=== PATIENT | male | born 1985 | race Hispanic/Latino ===

== ENCOUNTER 2018-12-03 08:38 | Emergency (ER) | payer OTHER ==
[2018-12-03 08:46] VITALS: BP 133/77
[2018-12-03 09:00] LABS: Basophils % (Auto) 0.4 % (0.0-1.8); Eosinophils # (Auto) 0.3 K/mm3 (0.0-0.4); Eosinophils % (Auto) 3.1 % (0.0-4.3); Hematocrit 46.5 % (35.5-45.6); Hemoglobin 16.1 gm/dl (11.8-15.2); Lymphocytes # (Auto) 2.2 K/mm3 (1.2-5.4); Lymphocytes % (Auto) 24.8 % (13.4-35.0); Mean Corpuscular HGB Conc 35 % (32-34); Mean Corpuscular Volume 92 fl (84-94); Monocytes # (Auto) 0.7 K/mm3 (0.0-0.8); Monocytes % (Auto) 7.8 % (0.0-7.3); Platelet Count 232 K/mm3 (140-440); Red Blood Count 5.04 M/mm3 (3.65-5.03); Red Cell Distribution Width 13.1 % (13.2-15.2)
[2018-12-03 09:18] LABS: Alanine Aminotransferase 35 units/L (7-56); Albumin 4.1 g/dL (3.9-5); BUN/Creatinine Ratio 16; Blood Urea Nitrogen 11 mg/dL (9-20); Calcium 8.8 mg/dL (8.4-10.2); Hemolysis Index 34
[2018-12-03 09:24] LABS: Bilirubin,Urine NEG (Negative); Blood,Urine LG (Negative); Color,Urine Red (Yellow); Mucus,Urine 2+ /HPF; RBC,Urine > 182.0 /HPF (0.0-6.0); Urobilinogen,Urine < 2.0 mg/dL (<2.0)
[2018-12-03] MEDS ORDERED: ZOFRAN IV ONE (09:31)
[2018-12-03] MEDS ORDERED: TORADOL IV ONE (09:31)
[2018-12-03] MEDS ORDERED: NACL 0.9% 1000 ML 1,000 ML IV ONE (09:31)
--- NOTE | 2018-12-03 09:37 | Emergency Department Report ---
ED Abdominal Pain HPI - General Chief Complaint: Abdominal Pain Stated Complaint: ABD PAIN Time Seen by Provider: 12/03/18 09:18 Source: patient Mode of arrival: Ambulatory Limitations: No Limitations - History of Present Illness Initial Comments: 33-year-old male presents to ED with left flank pain, onset early this morning. Patient reported associated hematuria. Patient reports history of kidney stones in the past, states this feels similar to previous episode but the pain is worse. Also reports history of polycystic kidney disease. Patient denies nausea or vomiting. MD Complaint: flank pain -: This morning Location: L flank Radiation: LLQ Migration to: no migration Severity: severe Quality: sharp Consistency: constant Improves With: nothing Worsens With: nothing Associated Symptoms: hematuria. denies: nausea, vomiting, fever, chills, dysuria - Related Data Previous Rx's Medication Instructions Recorded Last Taken Type Ciprofloxacin HCl [Ciprofloxacin 500 mg PO Q12HR #20 tab 12/03/18 Unknown Rx TAB] HYDROcodone/APAP 5-325 [[place] 1 each PO Q6HR PRN #7 tablet 12/03/18 Unknown Rx 5/325] Naproxen [Naprosyn] 500 mg PO BID #20 tablet 12/03/18 Unknown Rx Tamsulosin [Flomax] 0.4 mg PO QDAY 5 Days #5 cap 12/03/18 Unknown Rx Allergies Allergy/AdvReac Type Severity Reaction Status Date / Time No Known Allergies Allergy Unverified 12/03/18 08:46 ED Review of Systems ROS: Stated complaint: ABD PAIN Other details as noted in HPI Comment: All other systems reviewed and negative Constitutional: denies: chills, fever Gastrointestinal: abdominal pain. denies: nausea, vomiting Genitourinary: hematuria ED Past Medical Hx - Past Medical History Previous Medical History?: Yes Additional medical history: Polycystic kidney disease. - Surgical History Past Surgical History?: No - Social History Smoking Status: Current Every Day Smoker Substance Use Type: Marijuana - Medications Home Medications: Home Medications Medication Instructions Recorded Confirmed Last Taken Type Ciprofloxacin HCl [Ciprofloxacin 500 mg PO Q12HR #20 tab 12/03/18 Unknown Rx TAB] HYDROcodone/APAP 5-325 [[place] 1 each PO Q6HR PRN #7 tablet 12/03/18 Unknown Rx 5/325] Naproxen [Naprosyn] 500 mg PO BID #20 tablet 12/03/18 Unknown Rx Tamsulosin [Flomax] 0.4 mg PO QDAY 5 Days #5 cap 12/03/18 Unknown Rx ED Physical Exam - General Limitations: No Limitations General appearance: alert, in no apparent distress - Head Head exam: Present: atraumatic, normocephalic - Eye Eye exam: Present: normal appearance, PERRL, EOMI - ENT ENT exam: Present: mucous membranes moist - Neck Neck exam: Present: normal inspection - Respiratory Respiratory exam: Present: normal lung sounds bilaterally. Absent: respiratory distress - Cardiovascular Cardiovascular Exam: Present: regular rate, normal rhythm - GI/Abdominal GI/Abdominal exam: Present: soft, tenderness (mild LLQ tenderness). Absent: distended - Extremities Exam Extremities exam: Present: normal inspection - Back Exam Back exam: Absent: CVA tenderness (R), CVA tenderness (L) - Neurological Exam Neurological exam: Present: alert, oriented X3 - Psychiatric Psychiatric exam: Present: normal affect, normal mood - Skin Skin exam: Present: warm, dry, intact, normal color ED Course Vital Signs 12/03/18 12/03/18 08:45 09:06 Temperature 97.9 F Pulse Rate 85 Respiratory 98 H 17 Rate Blood Pressure 133/77 [Right] ED Medical Decision Making - Lab Data Result diagrams: 12/03/18 08:47 12/03/18 08:47 - Radiology Data Radiology results: report reviewed, image reviewed - Medical Decision Making - 7 mm stone present on CT scan - WBCs normal, pt is afebrile - pain controlled with toradol, pt asleep on stretcher - WBCs in urine but urine negative for nitrites or leuk esterase, no urine bacteria present - Differential Diagnosis kidney stone, ruptured renal cyst, pyelonephritis Critical care attestation.: If time is entered above; I have spent that time in minutes in the direct care of this critically ill patient, excluding procedure time. ED Disposition Clinical Impression: Kidney stone on left side Disposition: DC-01 TO HOME OR SELFCARE Is pt being admited?: No Condition: Stable Instructions: Kidney Stones (ED) Prescriptions: Ciprofloxacin HCl [Ciprofloxacin TAB] 500 mg PO Q12HR #20 tab Tamsulosin [Flomax] 0.4 mg PO QDAY 5 Days #5 cap HYDROcodone/APAP 5-325 [[place] 5/325] 1 each PO Q6HR PRN #7 tablet PRN Reason: Pain Referrals: NORA COHN MD [Primary Care Provider] - 3-5 Days CHARISSE ONEILL MD [Staff Physician] - 3-5 Days Time of Disposition: 11:14
--- NOTE | 2018-12-03 11:04 | Cat Scan Report ---
CT abdomen pelvis wo con INDICATION / CLINICAL INFORMATION: Left flank pain. Hematuria. TECHNIQUE: All CT scans at this location are performed using CT dose reduction for ALARA by means of automated e xposure control. COMPARISON: 04/17/2011. FINDINGS: ABDOMEN: There are multiple nonobstructive renal calculi bilaterally, the largest of which measures a pproximately 1 cm. There is mild left pelvocaliectasis, ureterectasis and perinephric/periureteral so ft tissue stranding. The liver, spleen, gallbladder, bile ducts, pancreas, adrenal glands and bowel are normal. No adenopa thy is seen. There is an incidental 4 mm noncalcified solid nodule in the right lower lobe. No additi onal follow-up is recommended based on the patient's age. PELVIS: The left ureter is mildly dilated to distal above the ureterovesical junction. There is a 7 m m ovoid calculus at that site on axial image #75. The ureter returns to a normal level below that sit e. The distal right ureter, urinary bladder and prostate gland are normal. There is a small fat-containing right inguinal hernia without complication. A normal appendix is pres ent and there is no evidence of diverticulitis. No abnormal mass or fluid collection is seen. There i s mild spondylosis. IMPRESSION: 1. 7 mm calculus in the distal left ureter, a couple of centimeters above the ureterovesical junction , is causing mild hydronephrosis. 2. Bilateral nonobstructive nephrolithiasis. 3. Small fat-containing right inguinal hernia without complication. Signer Name: Erik Webster MD Signed: 12/03/2018 10:59 AM Workstation Name: [id number]
== END 2018-12-03 11:22 | disposition home or self-care (01) ==
LOC: ED 08:38
DX: N20.0 Calculus of kidney (principal); F17.200 Nicotine dependence, unspecified, uncomplicated; F12.90 Cannabis use, unspecified, uncomplicated; Z79.899 Other long term (current) drug therapy
CPT/HCPCS: 36415; 74176; 80053; 81001; 85025; 96374; 96375; 99284; J1885; J2405; J7030

== ENCOUNTER 2019-11-27 19:55 | Emergency (ER) | payer SELFPAY ==
[2019-11-27 20:30] VITALS: BP 132/70
[2019-11-27] MEDS ORDERED: SODIUM CHLORIDE 0.9% 1000 ML 1,000 ML IV ONE (22:14)
--- NOTE | 2019-11-27 22:50 | Cat Scan Report ---
CT abdomen pelvis wo con INDICATION / CLINICAL INFORMATION: Suprapubic pain. TECHNIQUE: All CT scans at this location are performed using CT dose reduction for ALARA by means of automated e xposure control. COMPARISON: 12/03/2018 FINDINGS: No free fluid is seen in the abdomen. There are bilateral renal stones without evidence of obstructio n. The liver, spleen, pancreas, adrenal glands and great vessels are normal. No enlarged mesenteric o r retroperitoneal lymph nodes are seen. In the pelvis, no free fluid is seen. There is a 1.3 cm stone present in the bladder. The right ingui nal hernia now contains bowel but without obstruction. No enlarged lymph nodes are seen. The appendix is normal. No significant skeletal abnormality is identified. IMPRESSION: 1. 1.3 cm stone in the bladder. The bladder wall is mildly thickened. 2. Right inguinal hernia now containing bowel but without obstruction 3. Bilateral renal stones without obstruction Signer Name: Yobani Gardner MD FACR Signed: 11/27/2019 10:45 PM Workstation Name: [id number]
[2019-11-27 22:51] LABS: Basophils # (Auto) 0.1 K/mm3 (0.0-0.1); Basophils % (Auto) 0.7 % (0.0-1.8); Eosinophils # (Auto) 0.4 K/mm3 (0.0-0.4); Eosinophils % (Auto) 3.6 % (0.0-4.3); Lymphocytes # (Auto) 3.1 K/mm3 (1.2-5.4); Lymphocytes % (Auto) 28.3 % (13.4-35.0); Mean Corpuscular HGB Conc 37 % (32-34); Mean Corpuscular Volume 89 fl (84-94); Monocytes % (Auto) 8.8 % (0.0-7.3); Platelet Count 242 K/mm3 (140-440); Red Blood Count 4.84 M/mm3 (3.65-5.03)
[2019-11-27 22:53] LABS: Hematocrit 43.1 % (35.5-45.6); Hemoglobin 16.1 gm/dl (11.8-15.2)
[2019-11-27 23:13] LABS: Alanine Aminotransferase 55 units/L (7-56); Albumin 4.4 g/dL (3.9-5); BUN/Creatinine Ratio 19; Blood Urea Nitrogen 13 mg/dL (9-20); Calcium 9.6 mg/dL (8.4-10.2); Hemolysis Index 225
[2019-11-27 23:18] LABS: Bilirubin,Urine NEG (Negative); Blood,Urine NEG (Negative); Color,Urine Yellow (Yellow); Mucus,Urine FEW /HPF; Protein,Urine <15 mg/dL mg/dL (Negative); Urobilinogen,Urine < 2.0 mg/dL (<2.0)
[2019-11-27] MEDS ORDERED: KETOROLAC 30 MG/1 ML INJ IV ONE (23:25)
--- NOTE | 2019-11-27 23:47 | Emergency Department Report ---
ED Male HPI - General Chief complaint: Urogenital-Male Stated complaint: INSECT BITE HAVING TROUBLE BREATHING Source: patient Mode of arrival: Ambulatory Limitations: No Limitations - History of Present Illness Initial comments: Patient is a 34-year-old white male with a history of polycystic kidney disease and chronic recurrent kidney stones who presents to the ED with acute onset persistent decreased urination despite drinking water, suprapubic pressure and dysuria, urinary frequency and urgency for the last 2 days worse in the last 12 hours. Patient states that whenever he voids urine he literally dribbles drops of urine and feels more pressure in the suprapubic area. Patient denies testicular pain, traumatic injury, hematuria, penile discharge, abdominal pain, nausea, vomiting, bilateral flank pain, dizziness, syncope, fever, chills, cough, chest pain or shortness of breath, or diarrhea. MD Complaint: dysuria, other (decreased urination; suprapubic pressure) -: Sudden, days(s) (2) Location: penis Radiation: none Severity: mild Severity scale (0 -10): 2 Quality: dull, other (pressure) Improves with: none Worsens with: urination denies other symptoms, urinary retention, dysuria. denies: discharge, swelling, mass, rash, blood in urine, fever, nausea/vomiting, incontinence, other - Related Data Sexually active: Yes Previous Rx's Medication Instructions Recorded Last Taken Type HYDROcodone/APAP 5-325 [[place] 1 each PO Q6HR PRN #7 tablet 12/03/18 Unknown Rx 5/325] Naproxen [Naprosyn] 500 mg PO BID #20 tablet 12/03/18 Unknown Rx Tamsulosin [Flomax] 0.4 mg PO QDAY 5 Days #5 cap 12/03/18 Unknown Rx Ciprofloxacin HCl [Ciprofloxacin 500 mg PO Q12HR #20 tab 11/28/19 Unknown Rx TAB] Ketorolac [Toradol] 10 mg PO Q8H PRN #20 tablet 11/28/19 Unknown Rx Tamsulosin [Flomax] 0.4 mg PO QDAY #12 cap 11/28/19 Unknown Rx Allergies Allergy/AdvReac Type Severity Reaction Status Date / Time No Known Allergies Allergy Unverified 12/03/18 08:46 ED Review of Systems ROS: Stated complaint: INSECT BITE HAVING TROUBLE BREATHING Other details as noted in HPI Constitutional: denies: chills, fever Eyes: denies: eye pain, eye discharge, vision change ENT: denies: ear pain, throat pain Respiratory: denies: cough, shortness of breath, wheezing Cardiovascular: denies: chest pain, palpitations Endocrine: no symptoms reported Gastrointestinal: denies: abdominal pain, nausea, diarrhea Genitourinary: urgency, dysuria, frequency, other (decreased urination) Musculoskeletal: denies: back pain, joint swelling, arthralgia Skin: denies: rash, lesions Neurological: denies: headache, weakness, paresthesias Psychiatric: denies: anxiety, depression Hematological/Lymphatic: denies: easy bleeding, easy bruising ED Past Medical Hx - Past Medical History Previous Medical History?: Yes Additional medical history: Polycystic kidney disease; kidney stones - Surgical History Past Surgical History?: Yes - Social History Smoking Status: Current Every Day Smoker Substance Use Type: Marijuana - Medications Home Medications: Home Medications Medication Instructions Recorded Confirmed Last Taken Type HYDROcodone/APAP 5-325 [[place] 1 each PO Q6HR PRN #7 tablet 12/03/18 Unknown Rx 5/325] Naproxen [Naprosyn] 500 mg PO BID #20 tablet 12/03/18 Unknown Rx Tamsulosin [Flomax] 0.4 mg PO QDAY 5 Days #5 cap 12/03/18 Unknown Rx Ciprofloxacin HCl [Ciprofloxacin 500 mg PO Q12HR #20 tab 11/28/19 Unknown Rx TAB] Ketorolac [Toradol] 10 mg PO Q8H PRN #20 tablet 11/28/19 Unknown Rx Tamsulosin [Flomax] 0.4 mg PO QDAY #12 cap 11/28/19 Unknown Rx ED Physical Exam - General Limitations: No Limitations General appearance: alert, in no apparent distress - Head Head exam: Present: atraumatic, normocephalic, normal inspection - Eye Eye exam: Present: normal appearance, PERRL, EOMI Pupils: Present: normal accommodation - ENT ENT exam: Present: normal exam, normal orophraynx, mucous membranes moist, TM's normal bilaterally - Neck Neck exam: Present: normal inspection, full ROM. Absent: tenderness, lymphadenopathy - Respiratory Respiratory exam: Present: normal lung sounds bilaterally. Absent: respiratory distress, wheezes, rales, rhonchi, chest wall tenderness, accessory muscle use, prolonged expiratory - Cardiovascular Cardiovascular Exam: Present: regular rate, normal rhythm, normal heart sounds. Absent: systolic murmur, diastolic murmur, rubs, gallop - GI/Abdominal GI/Abdominal exam: Present: soft, normal bowel sounds. Absent: tenderness, guarding, rebound, hyperactive bowel sounds, hypoactive bowel sounds, organomegaly - Extremities Exam Extremities exam: Present: normal inspection, full ROM, normal capillary refill - Back Exam Back exam: Present: normal inspection, full ROM. Absent: tenderness, CVA tenderness (R), CVA tenderness (L), muscle spasm, paraspinal tenderness, vertebral tenderness - Neurological Exam Neurological exam: Present: alert, oriented X3, CN II-XII intact, normal gait, reflexes normal - Psychiatric Psychiatric exam: Present: normal affect, normal mood - Skin Skin exam: Present: warm, dry, intact, normal color. Absent: rash ED Course Vital Signs 11/27/19 20:26 Temperature 98.4 F Pulse Rate 79 Respiratory 19 Rate Blood Pressure 132/70 O2 Sat by Pulse 97 Oximetry ED Medical Decision Making - Lab Data Result diagrams: 11/27/19 22:21 11/27/19 22:21 - Radiology Data Radiology results: report reviewed, image reviewed Findings [facility] [address] [place] [address] Cat Scan Report Signed Patient: BEBETO MCLEDO MR#: [id number] : 1985 Acct:[id number] Age/Sex: 34 / M ADM Date: 11/27/19 Loc: ED Attending Dr: Ordering Physician: QI GUERRERO Date of Service: 11/27/19 Procedure(s): CT abdomen pelvis wo con Accession Number(s): [id number] cc: QI GUERRERO CT abdomen pelvis wo con INDICATION / CLINICAL INFORMATION: Suprapubic pain. TECHNIQUE: All CT scans at this location are performed using CT dose reduction for ALARA by means of automated exposure control. COMPARISON: 12/03/2018 FINDINGS: No free fluid is seen in the abdomen. There are bilateral renal stones without evidence of obstruction. The liver, spleen, pancreas, adrenal glands and great vessels are normal. No enlarged mesenteric or retroperitoneal lymph nodes are seen. In the pelvis, no free fluid is seen. There is a 1.3 cm stone present in the bladder. The right inguinal hernia now contains bowel but without obstruction. No enlarged lymph nodes are seen. The appendix is normal. No significant skeletal abnormality is identified. IMPRESSION: 1. 1.3 cm stone in the bladder. The bladder wall is mildly thickened. 2. Right inguinal hernia now containing bowel but without obstruction 3. Bilateral renal stones without obstruction Signer Name: Yobani Gardner MD FACR Signed: 11/27/2019 10:45 PM Workstation Name: [id number] Transcribed By: MS Dictated By: Yobani Gardner MD Electronically Authenticated By: Yobani Gardner MD Signed Date/Time: 11/27/192244 DD/ 40 TD/TT: - Medical Decision Making This is a 34-year-old white male with a history of polycystic kidney disease and chronic recurrent kidney stones who presents to the ED with acute onset persistent decreased urination despite drinking water, suprapubic pressure and dysuria, urinary frequency and urgency for the last 2 days worse in the last 12 hours. Patient states that whenever he voids urine he literally dribbles drops of urine and feels more pressure in the suprapubic area. In the ED, patient is alert and oriented x3 and is not in distress. Lab test results were reviewed and are all nonactionable. The abdomen pelvis CT scan without contrast showed a 1.3 cm stone in the bladder. The bladder wall is mildly thickened. It also showed right inguinal hernia now containing bowel but without obstruction as well as bilateral renal stones without obstruction. Patient was treated for pain in the ED, also treated with normal saline 1 L IV bolus x1 and Flomax. Patient was discharged home on 5 more prescriptions of Flomax and advised to follow-up with urologist Dr. Hanson for further evaluation. Patient was advised return to the ED immediately if symptoms get worse. - Differential Diagnosis UTI; kidney stones; Urinary retention; STD Critical care attestation.: If time is entered above; I have spent that time in minutes in the direct care of this critically ill patient, excluding procedure time. ED Disposition Clinical Impression: Kidney calculi, Urinary bladder calculus Urinary tract calculus Qualifiers: Urinary calculus location: bladder Qualified Code(s): N21.0 - Calculus in bladder Disposition: DC-01 TO HOME OR SELFCARE Is pt being admited?: No Does the pt Need Aspirin: No Condition: Stable Instructions: Kidney Stones (ED), Urinary Retention in Men (ED) Additional Instructions: Take medication with food, drink plenty of fluids and follow-up with the urologist Dr. Hanson in 3 to 5 days for reevaluation. Return to the ED immediately if symptoms get worse. Prescriptions: Ciprofloxacin HCl [Ciprofloxacin TAB] 500 mg PO Q12HR #20 tab Tamsulosin [Flomax] 0.4 mg PO QDAY #12 cap Ketorolac [Toradol] 10 mg PO Q8H PRN #20 tablet PRN Reason: Pain Referrals: LEATHA HANSON MD [Staff Physician] - 3-5 Days Time of Disposition: 00:12 Print Language: YEMENI
[2019-11-27] MEDS ORDERED: TAMSULOSIN 0.4 MG CAP PO ONE (23:55)
== END 2019-11-28 00:29 | disposition home or self-care (01) ==
LOC: ED 19:55
DX: N20.0 Calculus of kidney (principal); N20.9 Urinary calculus, unspecified; N21.0 Calculus in bladder
CPT/HCPCS: 36415; 74176; 80053; 81001; 83690; 85025; 96361; 96374; 99284; J1885; J7030

== ENCOUNTER 2020-03-08 09:11 | Emergency (ER) | payer SELFPAY ==
[2020-03-08 09:32] VITALS: BP 145/83
[2020-03-08 10:41] LABS: Basophils % (Auto) 0.4 % (0.0-1.8); Eosinophils # (Auto) 0.2 K/mm3 (0.0-0.4); Eosinophils % (Auto) 2.1 % (0.0-4.3); Lymphocytes # (Auto) 1.8 K/mm3 (1.2-5.4); Lymphocytes % (Auto) 23.8 % (13.4-35.0); Mean Corpuscular HGB Conc 36 % (32-34); Mean Corpuscular Volume 91 fl (84-94); Monocytes # (Auto) 0.6 K/mm3 (0.0-0.8); Monocytes % (Auto) 8.4 % (0.0-7.3); Platelet Count 259 K/mm3 (140-440); Red Blood Count 5.29 M/mm3 (3.65-5.03); Red Cell Distribution Width 12.6 % (13.2-15.2)
[2020-03-08 10:55] LABS: Hemoglobin 17.1 gm/dl (11.8-15.2)
[2020-03-08 11:01] LABS: Alanine Aminotransferase 43 units/L (7-56); Albumin 4.5 g/dL (3.9-5); Blood Urea Nitrogen 12 mg/dL (9-20); Calcium 9.4 mg/dL (8.4-10.2); Hemolysis Index 21
--- NOTE | 2020-03-08 11:04 | Emergency Department Report ---
ED Abdominal Pain HPI - General Chief Complaint: Back Pain/Injury Stated Complaint: PAIN IN SIDES/BACK/BLOOD IN URINE Time Seen by Provider: 03/08/20 11:01 Source: patient Mode of arrival: Ambulatory Limitations: No Limitations - History of Present Illness Initial Comments: This pleasant 34-year-old male presents the emergency department chief complaint of left-sided flank pain that started 2 nights ago with associated hematuria. Reports pain will radiate around to the left lower quadrant of the abdomen. He has a past medical history of polycystic kidney disease and kidney stones. He denies any associated fever, chills, night sweats, headache, dizziness, blurry vision, nausea, vomiting, diarrhea, chest pain, shortness of breath or any other associated symptoms. He rates the severity of pain is a 9 out of 10 describes intermittent sharp stabbing pain. Pain is aggravated by movement and there are no alleviating factors. - Related Data Previous Rx's Medication Instructions Recorded Last Taken Type HYDROcodone/APAP 5-325 [[place] 1 each PO Q6HR PRN #7 tablet 12/03/18 Unknown Rx 5/325] Naproxen [Naprosyn] 500 mg PO BID #20 tablet 12/03/18 Unknown Rx Tamsulosin [Flomax] 0.4 mg PO QDAY 5 Days #5 cap 12/03/18 Unknown Rx Ciprofloxacin HCl [Ciprofloxacin 500 mg PO Q12HR #20 tab 11/28/19 Unknown Rx TAB] Ketorolac [Toradol] 10 mg PO Q8H PRN #20 tablet 11/28/19 Unknown Rx Tamsulosin [Flomax] 0.4 mg PO QDAY #12 cap 11/28/19 Unknown Rx traMADoL [Ultram] 50 mg PO Q6HR PRN #12 tablet 03/08/20 Unknown Rx Allergies Allergy/AdvReac Type Severity Reaction Status Date / Time No Known Allergies Allergy Unverified 12/03/18 08:46 ED Review of Systems ROS: Stated complaint: PAIN IN SIDES/BACK/BLOOD IN URINE Other details as noted in HPI Comment: All other systems reviewed and negative Constitutional: denies: chills, fever Eyes: denies: eye pain, eye discharge, vision change ENT: denies: ear pain, throat pain Respiratory: denies: cough, shortness of breath, wheezing Cardiovascular: denies: chest pain, palpitations Endocrine: no symptoms reported Gastrointestinal: as per HPI, abdominal pain. denies: nausea, diarrhea Genitourinary: denies: urgency, dysuria Musculoskeletal: as per HPI, back pain. denies: joint swelling, arthralgia Skin: denies: rash, lesions Neurological: denies: headache, weakness, paresthesias Psychiatric: denies: anxiety, depression Hematological/Lymphatic: denies: easy bleeding, easy bruising ED Past Medical Hx - Past Medical History Previous Medical History?: Yes Additional medical history: Polycystic kidney disease; kidney stones - Surgical History Past Surgical History?: No - Social History Smoking Status: Current Every Day Smoker Substance Use Type: Marijuana - Medications Home Medications: Home Medications Medication Instructions Recorded Confirmed Last Taken Type HYDROcodone/APAP 5-325 [[place] 1 each PO Q6HR PRN #7 tablet 12/03/18 Unknown Rx 5/325] Naproxen [Naprosyn] 500 mg PO BID #20 tablet 12/03/18 Unknown Rx Tamsulosin [Flomax] 0.4 mg PO QDAY 5 Days #5 cap 12/03/18 Unknown Rx Ciprofloxacin HCl [Ciprofloxacin 500 mg PO Q12HR #20 tab 11/28/19 Unknown Rx TAB] Ketorolac [Toradol] 10 mg PO Q8H PRN #20 tablet 11/28/19 Unknown Rx Tamsulosin [Flomax] 0.4 mg PO QDAY #12 cap 11/28/19 Unknown Rx traMADoL [Ultram] 50 mg PO Q6HR PRN #12 tablet 03/08/20 Unknown Rx ED Physical Exam - General Limitations: No Limitations General appearance: alert, in no apparent distress - Head Head exam: Present: atraumatic, normocephalic - Eye Eye exam: Present: normal appearance, PERRL, EOMI Pupils: Present: normal accommodation - ENT ENT exam: Present: normal exam, normal orophraynx, mucous membranes moist - Neck Neck exam: Present: normal inspection, full ROM. Absent: tenderness, meningismus - Respiratory Respiratory exam: Present: normal lung sounds bilaterally. Absent: respiratory distress, wheezes, rales, rhonchi, stridor - Cardiovascular Cardiovascular Exam: Present: regular rate, normal rhythm, normal heart sounds. Absent: systolic murmur, diastolic murmur, rubs, gallop - GI/Abdominal GI/Abdominal exam: Present: soft, tenderness (Mild tenderness to left lower quadrant, no rebound or guarding, negative McBurney's point tenderness, negative Vivar sign), normal bowel sounds. Absent: distended, guarding, rebound, rigid - Rectal Rectal exam: Present: deferred - Extremities Exam Extremities exam: Present: normal inspection, full ROM, normal capillary refill. Absent: tenderness, calf tenderness (No posterior calf tenderness) - Back Exam Back exam: Present: normal inspection, full ROM, CVA tenderness (L). Absent: tenderness, CVA tenderness (R), muscle spasm, paraspinal tenderness, vertebral tenderness - Neurological Exam Neurological exam: Present: alert, oriented X3, CN II-XII intact, normal gait - Psychiatric Psychiatric exam: Present: normal affect, normal mood - Skin Skin exam: Present: warm, dry, intact, normal color. Absent: rash ED Course Vital Signs 03/08/20 09:30 Temperature 98.1 F Pulse Rate 66 Respiratory 16 Rate Blood Pressure 145/83 [Right] O2 Sat by Pulse 97 Oximetry ED Medical Decision Making - Lab Data Result diagrams: 03/08/20 09:57 03/08/20 09:57 Lab Results 03/08/20 03/08/20 03/08/20 Range/Units 09:57 09:57 10:27 WBC 7.5 (4.5-11.0) K/mm3 RBC 5.29 H (3.65-5.03) M/mm3 Hgb 17.1 H (11.8-15.2) gm/dl Hct 48.0 H (35.5-45.6) % MCV 91 (84-94) fl MCH 32 (28-32) pg MCHC 36 H (32-34) % RDW 12.6 L (13.2-15.2) % Plt Count 259 (140-440) K/mm3 Lymph % (Auto) 23.8 (13.4-35.0) % Cottle % (Auto) 8.4 H (0.0-7.3) % Eos % (Auto) 2.1 (0.0-4.3) % Baso % (Auto) 0.4 (0.0-1.8) % Lymph # (Auto) 1.8 (1.2-5.4) K/mm3 Cottle # (Auto) 0.6 (0.0-0.8) K/mm3 Eos # (Auto) 0.2 (0.0-0.4) K/mm3 Baso # (Auto) 0.0 (0.0-0.1) K/mm3 Seg Neutrophils % 65.3 (40.0-70.0) % Seg Neutrophils # 4.9 (1.8-7.7) K/mm3 Sodium 138 (137-145) mmol/L Potassium 4.3 (3.6-5.0) mmol/L Chloride 102.4 (98-107) mmol/L Carbon Dioxide 30 (22-30) mmol/L Anion Gap 10 mmol/L BUN 12 (9-20) mg/dL Creatinine 0.7 L (0.8-1.3) mg/dL Estimated GFR > 60 ml/min BUN/Creatinine Ratio 17 % Glucose 98 (75-100) mg/dL Calcium 9.4 (8.4-10.2) mg/dL Total Bilirubin 0.40 (0.1-1.2) mg/dL AST 27 (5-40) units/L ALT 43 (7-56) units/L Alkaline Phosphatase 61 (35-129) units/L Total Protein 7.5 (6.3-8.2) g/dL Albumin 4.5 (3.9-5) g/dL Albumin/Globulin Ratio 1.5 % Urine Color Yellow (Yellow) Urine Turbidity Slightly-cloudy (Clear) Urine pH 7.0 (5.0-7.0) Ur Specific [place] 1.018 (1.003-1.030) Urine Protein 30 mg/dl (Negative) mg/dL Urine Glucose (UA) Neg (Negative) mg/dL Urine Ketones Neg (Negative) mg/dL Urine Blood Lg (Negative) Urine Nitrite Neg (Negative) Urine Bilirubin Neg (Negative) Urine Urobilinogen < 2.0 (<2.0) mg/dL Ur Leukocyte Esterase Neg (Negative) Urine WBC (Auto) 15.0 H (0.0-6.0) /HPF Urine RBC (Auto) > 182.0 (0.0-6.0) /HPF Urine Mucus Few /HPF - Radiology Data Radiology results: report reviewed Cat Scan Report Signed Patient: BEBETO MCLEOD MR#: [id number] : 1985 Acct:[id number] Age/Sex: 34 / M ADM Date: 03/08/20 Loc: ED Attending Dr: Ordering Physician: QI LEONE Date of Service: 03/08/20 Procedure(s): CT abdomen pelvis wo con Accession Number(s): [id number] cc: QI LEONE CT ABDOMEN AND PELVIS WITHOUT CONTRAST HISTORY: left flank pain radiating to LLQ, hx of PKD,stones COMPARISON: 11/27/2019 TECHNIQUE: Axial CT images were obtained through the abdomen and pelvis without IV contrast. Sagittal and coronal reformatted images. All CT scans at this location are performed using CT dose reduction for ALARA by means of automated exposure control. FINDINGS: CT ABDOMEN: Lung Bases: Clear. Liver: No significant abnormality. Biliary: No significant abnormality. Spleen: No significant abnormality. Unenlarged. Pancreas: No significant abnormality. Adrenals: No significant abnormality. Kidneys: Bilateral renal calyceal stones are again noted and not significantly changed. The largest stone measures 9 mm at the inferior pole the right kidney. A 3.4 mm stone is identified in the mid right ureter. No significant hydronephrosis. Lymphatics: No lymphadenopathy. Vasculature: No significant abnormality. Bowel/Peritoneum: No significant abnormality. No free air. No free fluid. Small right inguinal hernia containing fat is noted. CT PELVIS: : 9 mm stone is identified in the bladder. Osseous Structures: No significant abnormality. Additional Findings: None IMPRESSION: Bilateral nephrolithiasis. 3.4 mm right ureteral stone, nonobstructing. Bladder stone. Right inguinal hernia containing fat. Signer Name: Henrik Rush Jr, MD Signed: 03/08/2020 1:10 PM Workstation Name: [id number] Transcribed By: TTR Dictated By: HENRIK RUSH JR, MD Electronically Authenticated By: HENRIK RUSH JR, MD Signed Date/Time: 03/08/20 1310 - Medical Decision Making Patient nontoxic in no acute distress. Vital signs are stable. The patient had saline tenderness to percussion of the left flank with some mild left lower quadrant pain. CT of the abdomen pelvis without contrast showed a 9 mm stone in the bladder which suspect may be a recently passed stone. There is also a nonobstructing stone on the right which she was not having any pain over there. The scan was otherwise unremarkable. The patient will be given urology follow- up, pain medication and recommend he return the emerge for any change or worsening symptoms. There were a few white blood cells in his urine however his white blood cell count in the blood was normal, he was afebrile, there is no significant inflammatory stranding on CT and my suspicion for UTI is very low at this time. Patient was instructed that if he develops a fever, nausea and vomiting or intractable pain he need to return to the ER immediately. - Differential Diagnosis Nephrolithiasis, pyelonephritis, renal cyst Critical care attestation.: If time is entered above; I have spent that time in minutes in the direct care of this critically ill patient, excluding procedure time. ED Disposition Clinical Impression: Kidney stone on right side Disposition: - TO HOME OR SELFCARE Is pt being admited?: No Condition: Stable Instructions: Renal Colic, Pxwa-of-Jard Prescriptions: traMADoL [Ultram] 50 mg PO Q6HR PRN #12 tablet PRN Reason: Pain Referrals: PRIMARY CAREMD [Primary Care Provider] - 3-5 Days CHARISSE ONEILL MD [Staff Physician] - 3-5 Days Time of Disposition: 13:31
[2020-03-08 11:19] LABS: Bilirubin,Urine NEG (Negative); Blood,Urine LG (Negative); Color,Urine Yellow (Yellow); Mucus,Urine FEW /HPF; Urobilinogen,Urine < 2.0 mg/dL (<2.0)
[2020-03-08 11:20] LABS: BUN/Creatinine Ratio 17
[2020-03-08 12:01] LABS: RBC,Urine > 182.0 /HPF (0.0-6.0)
--- NOTE | 2020-03-08 13:15 | Cat Scan Report ---
CT ABDOMEN AND PELVIS WITHOUT CONTRAST HISTORY: left flank pain radiating to LLQ, hx of PKD,stones COMPARISON: 11/27/2019 TECHNIQUE: Axial CT images were obtained through the abdomen and pelvis without IV contrast. Sagittal and coronal reformatted images. All CT scans at this location are performed using CT dose reduction for ALARA by means of automated exposure control. FINDINGS: CT ABDOMEN: Lung Bases: Clear. Liver: No significant abnormality. Biliary: No significant abnormality. Spleen: No significant abnormality. Unenlarged. Pancreas: No significant abnormality. Adrenals: No significant abnormality. Kidneys: Bilateral renal calyceal stones are again noted and not significantly changed. The largest s tone measures 9 mm at the inferior pole the right kidney. A 3.4 mm stone is identified in the mid rig ht ureter. No significant hydronephrosis. Lymphatics: No lymphadenopathy. Vasculature: No significant abnormality. Bowel/Peritoneum: No significant abnormality. No free air. No free fluid. Small right inguinal hernia containing fat is noted. CT PELVIS: : 9 mm stone is identified in the bladder. Osseous Structures: No significant abnormality. Additional Findings: None IMPRESSION: Bilateral nephrolithiasis. 3.4 mm right ureteral stone, nonobstructing. Bladder stone. Right inguinal hernia containing fat. Signer Name: Henrik Rush Jr, MD Signed: 03/08/2020 1:10 PM Workstation Name: [id number]
== END 2020-03-08 13:41 | disposition home or self-care (01) ==
LOC: ED 09:11
DX: N20.0 Calculus of kidney (principal); F17.200 Nicotine dependence, unspecified, uncomplicated; F12.10 Cannabis abuse, uncomplicated; Z79.899 Other long term (current) drug therapy
CPT/HCPCS: 36415; 74176; 80053; 81001; 85025; 87086

== ENCOUNTER 2021-02-11 09:28 | Emergency (ER) | payer SELFPAY ==
[2021-02-11 09:54] VITALS: BP 126/78
[2021-02-11] MEDS ORDERED: IBUPROFEN 600 MG TAB PO ONE (10:17)
--- NOTE | 2021-02-11 10:17 | Emergency Department Report ---
Upper Extremity - [facility] Chief Complaint: Extremity Injury, Upper Stated Complaint: RIGHT HAND PAIN Upper Extremity: Right Wrist Occurred When: 1 Day Mechanism: Hit with Object Severity: severe Symptoms: Yes Pain with Movement, Yes Limited Range of Movement, Yes Swelling, No Deformity Other History: The patient was evaluated in the emergency department for symptoms described in the history of present illness. He/she was evaluated in the context of the global COVID-19 pandemic, which necessitated consideration that the patient might be at risk for infection with the virus that causes COVID-19. Institutional protocols and algorithms that pertain to the evaluation of patients at risk for COVID-19 are in a state of rapid change based on info rmation released by regulatory bodies including the CDC and federal and state organizations. These policies and algorithms were followed during the patient's care in the emergency department. Please note that these policies, procedures and recommendations changed on a rapid basis. 35-year-old male presents to the emergency room for right wrist pain. Patient states it started last night. 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 Patient states that pain was not that bad at the initial but last night pain increasing this morning he is not able to flex his right wrist. He also complains of swelling. ED Review of Systems ROS: Stated complaint: RIGHT HAND PAIN Other details as noted in HPI ED Past Medical Hx - Past Medical History Previous Medical History?: Yes Additional medical history: Polycystic kidney disease; kidney stones - Surgical History Past Surgical History?: No - Social History Smoking Status: Current Every Day Smoker Substance Use Type: Alcohol - Medications Home Medications: Home Medications Medication Instructions Recorded Confirmed Last Taken Type HYDROcodone/APAP 5-325 [[place] 1 each PO Q6HR PRN #7 tablet 12/03/18 Unknown Rx 5/325] Naproxen [Naprosyn] 500 mg PO BID #20 tablet 12/03/18 Unknown Rx Tamsulosin [Flomax] 0.4 mg PO QDAY 5 Days #5 cap 12/03/18 Unknown Rx Ciprofloxacin HCl [Ciprofloxacin 500 mg PO Q12HR #20 tab 11/28/19 Unknown Rx TAB] Ketorolac [Toradol] 10 mg PO Q8H PRN #20 tablet 11/28/19 Unknown Rx Tamsulosin [Flomax] 0.4 mg PO QDAY #12 cap 11/28/19 Unknown Rx traMADoL [Ultram] 50 mg PO Q6HR PRN #12 tablet 03/08/20 Unknown Rx Ibuprofen [Motrin 800 MG tab] 800 mg PO Q8HR PRN #21 tablet 02/11/21 Unknown Rx Upper Extremity Exam - Exam General: Vital signs noted. No distress. Alert and acting appropriately. Head and Torso: No HEENT Abnormality, No Neck Tenderness, No Chest/Lungs Abnormality, No Abdominal Tenderness, No Back Tenderness Shoulder Exam: Yes Normal Range of Motion in Shoulder, No Shoulder Tenderness, No Clavicle Tenderness, No Shoulder Deformity, No AC Joint Tenderness Arm Exam: No Arm/Humerus Tenderness, No Arm Deformity Forearm: No Forearm Tenderness, No Forearm Deformity, No Pain with Pronation, No Pain with Supination Wrist: Yes Wrist Tenderness, No Normal ROM in Wrist, No Wrist Deformity, No Snuffbox Tenderness, No Pain with Axial Thumb Compression Hand: Yes Normal ROM in Digit(s), No Hand Tenderness, No Hand Deformity, No Digit Tenderness, No Digit(s) Deformity, No Tendon Dysfunction CMS Exam: No Broken Skin, No Normal Distal Pulses, No Normal Capillary Refill, No Normal Distal Sensation ED Course Vital Signs 02/11/21 09:49 Temperature 98 F Pulse Rate 69 Respiratory 20 Rate Blood Pressure 126/78 O2 Sat by Pulse 98 Oximetry ED Medical Decision Making - Radiology Data Radiology results: report reviewed My Comment(s) Study Comments [facility] [address] [place] [address] XRay Report Signed Patient: BEBETO MCLEOD MR#: [id number] : 1985 Acct:[id number] Age/Sex: 35 / M ADM Date: 02/11/21 Loc: ED Attending Dr: Ordering Physician: QI MONTILLA Date of Service: 02/11/21 Procedure(s): XR wrist 3+V RT Accession Number(s): [id number] cc: QI MONTILLA Fluoro Time In Minutes: EXAMINATION: Right wrist radiograph, 3 views, 02/11/2021 CLINICAL INFORMATION: Right wrist pain and trauma COMPARISON: None. FINDINGS: There is no evidence of acute fracture or dislocation. No focal soft tissue swelling is identified. There are no significant bony degenerative changes. IMPRESSION: 1. No evidence of acute bony abnormality of the right wrist. Signer Name: Jane Badillo MD Signed: 02/11/2021 10:32 AM Workstation Name: [id number] Transcribed By: EB Dictated By: Jane Badillo MD Electronically Authenticated By: Jane Badillo MD Signed Date/Time: 02/11/211031 DD/ 30 TD/TT: - Medical Decision Making 35-year-old male presents to the emergency room for right wrist pain. Patient states it started last night. 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 Patient states that pain was not that bad at the initial but last night pain increasing this morning he is not able to flex his right wrist. He also complains of swelling. X-rays ordered. Critical care attestation.: If time is entered above; I have spent that time in minutes in the direct care of this critically ill patient, excluding procedure time. ED Disposition Clinical Impression: Wrist sprain Qualifiers: Encounter type: initial encounter Laterality: right Qualified Code(s): S63.501A - Unspecified sprain of right wrist, initial encounter Disposition: 01 HOME / SELF CARE / HOMELESS Is pt being admited?: No Does the pt Need Aspirin: No Condition: Stable Instructions: Wrist Splint, Adult, [id number] Additional Instructions: X-ray of your wrist is negative for any dislocation fracture. Wear wrist splint take your ibuprofen or naproxen and follow-up with an orthopedic provider if not improving. Prescriptions: Ibuprofen [Motrin 800 MG tab] 800 mg PO Q8HR PRN #21 tablet PRN Reason: Pain , Severe (7-10) Referrals: PRIMARY CARE, [Primary Care Provider] - 3-5 Days NAZARIO SIDHU MD [Staff Physician] - 3-5 Days Forms: Work/School Release Form(ED) Time of Disposition: 10:57
--- NOTE | 2021-02-11 10:37 | XRay Report ---
EXAMINATION: Right wrist radiograph, 3 views, 02/11/2021 CLINICAL INFORMATION: Right wrist pain and trauma COMPARISON: None. FINDINGS: There is no evidence of acute fracture or dislocation. No focal soft tissue swelling is imer ntified. There are no significant bony degenerative changes. IMPRESSION: 1. No evidence of acute bony abnormality of the right wrist. Signer Name: Jane Badillo MD Signed: 02/11/2021 10:32 AM Workstation Name: [id number]
== END 2021-02-11 11:19 | disposition home or self-care (01) ==
LOC: ED 09:28
DX: S63.501A Unspecified sprain of right wrist, initial encounter (principal); F17.200 Nicotine dependence, unspecified, uncomplicated; F10.20 Alcohol dependence, uncomplicated; X50.9XXA Other and unspecified overexertion or strenuous movements or postures, initial encounter; Y93.89 Activity, other specified; Y92.89 Other specified places as the place of occurrence of the external cause; Y99.0 Civilian activity done for income or pay
CPT/HCPCS: 99284